=== PATIENT | female | born 1995 | race Caucasian/White ===

== ENCOUNTER 2016-12-10 23:21 | Emergency (ER) | payer SELFPAY ==
[~2016-12-10] VITALS: Ht 157.5 cm; Wt 59.0 kg
[2016-12-10 23:25] VITALS: BP 136/80
[2016-12-10] MEDS ORDERED: ALBU8HFA IH (23:25)
== END 2016-12-11 00:05 | disposition left against medical advice (07) ==
LOC: EMS 23:24
DX: R56.9 Unspecified convulsions (principal); Z53.21 Procedure and treatment not carried out due to patient leaving prior to being seen by health care provider